=== PATIENT | female | born 1945 | race Caucasian/White ===

== ENCOUNTER 2016-11-09 14:55 | Observation (INO) ==
[2016-11-09] MEDS ORDERED: SALINE LOCK IV FLUID XX ONE (17:22)
[2016-11-09] MEDS ORDERED: LOVENOX 1 MG/KG SUBQ SCH (17:30)
[2016-11-09] MEDS: TYLENOL PO PRN ×2 (18:02→21:37)
[2016-11-09] MEDS: NITROGLYCERIN TOP SCH ×2 (18:02→18:06)
[2016-11-09] MEDS: LOVENOX SUBQ SCH (18:02)
[2016-11-09] MEDS: NORVASC PO SCH (18:02)
[2016-11-09] MEDS: COREG PO SCH (20:19)
[2016-11-09] MEDS: VASOTEC PO SCH (20:19)
[2016-11-10] MEDS: NITROGLYCERIN TOP SCH ×3 (00:18→12:05)
[2016-11-10] MEDS: ZOFRAN IV PRN ×2 (02:33→05:37)
[2016-11-10] MEDS: TYLENOL PO PRN ×3 (02:37→12:32)
[2016-11-10] MEDS ORDERED: MOTRIN PO ONE (05:03)
[2016-11-10 05:07] LABS: HEMATOCRIT 40.3 % (37.0-47.0); HEMOGLOBIN 12.8 g/dL (12.0-16.0); MCH 30.5 PG (27-31); MCHC 31.8 g/dL (33-37); MPV 13.1 FL (7.4-10.4); RBC 4.2 XMIL (4.2-5.4)
--- NOTE | 2016-11-10 05:13 | EKG Report ---
Test Performed on : 11/09/2016 5:33:15 PM Test Reason : CHEST PAIN Blood Pressure : / mmHG Vent. Rate : 052 BPM Atrial Rate : 052 BPM P-R Int : 176 ms QRS Dur : 094 ms QT Int : 464 ms P-R-T Axes : 026 013 020 degrees QTc Int : 431 ms Sinus bradycardia. Otherwise normal ECG When compared with ECG of 03-AUG-2013 14:15, No significant change was found Confirmed by Lashell CLEVELAND, Landon Munguia ([id number]) on 11/11/2016 5:37:02 PM
[2016-11-10 05:21] LABS: HDL 39 mg/dL (45-65); LDL 122 mg/dL; TRIGLYCERIDES 154 mg/dL (35-135); VLDL 31 mg/dL
[2016-11-10] MEDS: LOVENOX SUBQ SCH (05:37)
[2016-11-10] MEDS: PRILOSEC PO SCH ×2 (05:37→06:49)
[2016-11-10] MEDS: COREG PO SCH (08:08)
[2016-11-10] MEDS: NORVASC PO SCH (08:09)
[2016-11-10] MEDS: VASOTEC PO SCH (08:10)
--- NOTE | 2016-11-10 08:34 | Diag Imaging Result Document ---
PROCEDURE NAME: CHEST-2 VIEWS - 11/10/2016 CHEST X-RAY, 2 VIEWS: COMPARISON: 08/31/2012. FINDINGS: The lungs are normally expanded and clear. Heart size and mediastinal contours are normal. No pneumothorax or pleural effusion. IMPRESSION: Negative exam.
[2016-11-10] MEDS ORDERED: DEXILANT PO SCH (09:00)
[2016-11-10] MEDS ORDERED: ASPIRIN PO SCH (09:00)
[2016-11-10] MEDS ORDERED: LASIX PO SCH (09:00)
--- NOTE | 2016-11-10 10:03 | Diag Imaging Result Document ---
PROCEDURE NAME: HEAD W/O CONTRAST - 11/10/2016 CT HEAD WITHOUT CONTRAST: COMPARISON: 11/11/2010. FINDINGS: There is no discrete intracranial mass, mass effect, or intracranial hemorrhage. There is no evidence of hydrocephalus. There is no evidence of acute infarct given the limited sensitivity of CT versus MRI. There is incidental hyperostosis frontalis. Surrounding soft tissues and bony structures are grossly unremarkable, otherwise. IMPRESSION: Stable CT head with no evidence of acute pathology.
--- NOTE | 2016-11-10 11:03 | PROGRESS NOTE ---
DATE: 11/10/2016 SUBJECTIVE: Ms. Hernandez was admitted to [facility] with chest pain. Her blood pressure was quite labile in my office at 210/90. We treated her with topical nitrates and subcutaneous Lovenox. She has ruled out for myocardial ischemia by serial enzymes. She has had no further chest pain. She did have a normal cardiac catheterization in April 2016. Her blood pressure is trending down. We added amlodipine 5 mg daily. This morning, her blood pressure was 128/54. She is with complaint of a headache at the back of her head and neck. She apparently fell Wednesday and hit her head. There was no loss of consciousness. When she fell, she reported that she saw stars. She has had some nausea, but there have been no mental status changes or significant visual changes. PHYSICAL EXAMINATION: Vital signs: Temperature 97.6 degrees, pulse 59, respirations 18, blood pressure 128/54. Cardiovascular: Regular rate and rhythm. Lungs: Clear. Abdomen: Soft, nontender, with active bowel sounds. ASSESSMENT AND PLAN: 1. Chest pain. I suspect that her chest pain was due to coronary vasospasm in the face of markedly elevated blood pressure. We will continue daily aspirin and aggressive blood pressure control. I believe that the use of amlodipine will reduce the risk of coronary vasospasm and also help to control her blood pressure. 2. Hypertension. Her blood pressure looks much better. We will continue her current regimen of medications. 3. Headache. Her headache intensified last night with topical nitrates. It sounds as if she might have sustained a concussion. I am going to check a CT scan of the brain this morning. cc: Blossom Corea MD
[2016-11-10 11:12] VITALS: BP 157/53
[2016-11-10] MEDS ORDERED: MISC. PHARMACY COMMUNICATION SCH (12:45)
== END 2016-11-10 14:05 | disposition home or self-care (01) ==
LOC: DIRADM → 3S 14:55
PROVIDERS: ADMIT Internal Medicine; ATTEND Internal Medicine

== ENCOUNTER 2018-09-14 15:47 | Inpatient (IN) ==
[2018-09-14] MEDS ORDERED: DESYREL PO PRN (16:44)
[2018-09-14] MEDS ORDERED: SODIUM CHLORIDE 0.9% INJ PRN (16:44)
[2018-09-14] MEDS ORDERED: TYLENOL PO PRN (16:44)
[2018-09-14] MEDS ORDERED: PHENERGAN IV PRN (16:44)
[2018-09-14 17:53] LABS: WBC 22.39 X1000 (4.8-10.8)
[2018-09-14 17:54] LABS: BASO# 0.06 X1000 (0.0-0.2); BASO% 0.3 % (0.0-0.8); HEMATOCRIT 30.1 % (37.0-47.0); HEMOGLOBIN 9.1 g/dL (12.0-16.0); IMM GRAN# 0.29 X1000 (0.0-0.04); IMM GRAN% 1.3 % (0.0-0.5); LYMPH# 0.33 X1000 (1.2-3.4); LYMPH% 1.5 % (20.5-51.1); MCH 31.9 PG (27-31); MCHC 30.2 g/dL (33-37); MCV 105.6 FL (81-99); MONO# 0.47 X1000 (0.11-0.59); MONO% 2.1 % (1.7-9.3); MPV 12.6 FL (7.4-10.4); NEUT# 21.24 X1000 (1.4-6.5); NEUT% 94.8 % (42.2-75.2); PLT 267 X1000 (130-400); RBC 2.85 XMIL (4.2-5.4); RDW 16.1 % (11.5-14.5)
[2018-09-14] MEDS ORDERED: MORPHINE IV PRN (18:06)
[2018-09-14 18:12] LABS: AGAP 13; ALB/GLOB RATIO 1.1; ALBUMIN 2.6 g/dL (3.5-5.0); ALKALINE PHOSPHATASE 120 U/L (32-104); BUN 9 mg/dL (8-22); CHLORIDE 100 mmol/L (98-107); COSMO 281; CREATININE 1.2 mg/dL (0.5-0.9); ESTIMATED GFR 44; GLUCOSE 87 mg/dL (70-104); GOT 13 U/L (10-30); GPT < 5 U/L (10-36); POTASSIUM 2.8 mmol/L (3.5-5.1); SODIUM 142 mmol/L (136-145); TCO2 29 mmol/L (25-35); TOTAL BILIRUBIN 0.38 mg/dL (0.20-1.00)
[2018-09-14 18:13] LABS: CALCIUM 6.7 mg/dL (8.8-10.2)
[2018-09-14] MEDS ORDERED: POTASSIUM CHLORIDE 40 MEQ/SWI 40 MEQ/100 ML IVPB IV ONE (18:25)
[2018-09-14] MEDS ORDERED: CALCIUM GLUCONATE 2 GM in NS 100 ML IV ONE (18:27)
--- NOTE | 2018-09-14 18:34 | Diag Imaging Result Doc PS360 ---
EXAM: CHEST-PORTABLE - 09/14/2018 HISTORY: HTN TECHNIQUE: Portable chest Scapula are overlap. COMPARISON: 11/10/2016 FINDINGS: Heart size appears mildly enlarged. There is a small left pleural effusion. There is subsegmental atelectasis at left base. There is a possible 1.5 cm nodular density at the left upper lobe, versus artifact from scapular overlap. The remainder of the lungs appear essentially clear. There is no pneumothorax identified. There is a central venous catheter with its tip at or near the cavoatrial junction. IMPRESSION: Mild cardiomegaly. Small left pleural effusion and mild left basilar atelectasis. Possible 1.5 cm nodular density at left upper lobe. Electronically signed by Luis Varghese 09/14/2018 6:32 PM
[2018-09-14] MEDS: NS 1,000 ML IV SCH (18:42)
[2018-09-14] MEDS: LOVENOX SUBQ SCH (18:43)
[2018-09-14 18:47] LABS: BANDS 1 % (0-1); LYMPHS 2 % (21-51); MICROCYTOSIS OCCASIONAL; MONO 2 % (1-9); SEGS 95 % (42-75)
[2018-09-14] MEDS: ZOSYN 4.5 GM in NS 100 ML IV SCH (18:57)
--- NOTE | 2018-09-14 18:57 | Diag Imaging Result Doc PS360 ---
EXAM: CT ABDOMEN/PELVIS W/O CONTRAST - 09/14/2018 HISTORY: RECURRENT DIVERTICULITIS TECHNIQUE: CT abdomen/pelvis without contrast. No contrast administered per request of the referring provider. COMPARISON: 06/16/2018 FINDINGS: There are small bilateral pleural effusions with adjacent dependent atelectasis. There are no acute changes identified in the liver, spleen, adrenal glands, or pancreas. The gallbladder is distended similar to prior. There are no calcified gallstones or pericholecystic inflammation identified. There is mild left hydronephrosis. There is no discrete renal stone identified. The mild left hydronephrosis may relate There is no right hydronephrosis. There is no renal stone identified. There is mild retroperitoneal adenopathy. Evaluation of bowel is somewhat limited due to the lack of administered oral and intravenous contrast. There is colonic diverticulosis. There is a clinical history of diverticulitis with possible small perforation at an outside institution about two weeks ago. There is an unusual tubular structure at the left pelvis which along the left side of the sigmoid colon and it extends above the sigmoid colon. This is primarily of fluid density, and contains a small amount of gas. There was no loop of bowel present at this location on the prior exam. This is suspicious for an unusual tubular abscess. This measures about 10 cm in length by slightly greater than or equal to 2.5 cm in diameter. The above-mentioned left hydronephrosis may relate to some compression of the left ureter by the apparent abscess. There are ill-defined inflammatory changes of the mesentery at the pelvis and lower abdomen. There are possibly some small fluid collections within the mesentery which may represent small interloop abscesses, although these are difficult to definitively distinguish from unopacified small bowel. There is no free intraperitoneal air identified elsewhere. There is no evidence of bowel obstruction. IMPRESSION: Apparent unusual tubular abscess in left pelvis along the left side of the sigmoid colon and extending above the sigmoid. This measures approximately 10 cm in length by slightly greater than or equal to 2.5 cm in diameter. This apparently compresses left ureter, producing mild left hydronephrosis. This likely originated from sigmoid diverticulitis. Ill-defined inflammatory changes of mesentery of pelvis and lower abdomen, with possible scattered small interloop abscesses. This report was discussed with Dr. Corea on 09/14/2018 at 6:45 PM and was readback. This exam was performed using automated exposure control, adjustment of mA or kV according to patient size, and/or use of iterative reconstruction technique. Electronically signed by Luis Varghese 09/14/2018 6:54 PM
[2018-09-14] MEDS: LEVAQUIN 500 MG/D5W 500 MG/100 ML IVPB IV SCH (20:04)
[2018-09-14] MEDS: MELATONIN PO SCH (20:10)
[2018-09-14] MEDS: COREG PO SCH (20:10)
[2018-09-14] MEDS ORDERED: COREG PO SCH (21:00)
[2018-09-15] MEDS: ZOSYN 4.5 GM in NS 100 ML IV SCH ×4 (03:08→20:03)
[2018-09-15] MEDS: NS 1,000 ML IV SCH ×3 (03:10→15:23)
[2018-09-15 08:43] LABS: AGAP 5; ALBUMIN 2.2 g/dL (3.5-5.0); ALKALINE PHOSPHATASE 111 U/L (32-104); BUN 13 mg/dL (8-22); CALCIUM 7.3 mg/dL (8.8-10.2); CHLORIDE 105 mmol/L (98-107); COSMO 288; CREATININE 1.3 mg/dL (0.5-0.9); ESTIMATED GFR 40; GLUCOSE 81 mg/dL (70-104); GOT 10 U/L (10-30); GPT < 5 U/L (10-36); POTASSIUM 3.5 mmol/L (3.5-5.1); SODIUM 145 mmol/L (136-145); TCO2 35 mmol/L (25-35); TOTAL BILIRUBIN 0.36 mg/dL (0.20-1.00); TOTAL PROTEIN 4.5 g/dL (6.3-8.3)
[2018-09-15] MEDS: ZOVIRAX PO SCH (08:48)
[2018-09-15] MEDS: COREG PO SCH ×2 (08:48→20:02)
[2018-09-15] MEDS: NORVASC PO SCH (08:48)
[2018-09-15] MEDS: VITAMIN B-12 PO SCH (08:48)
[2018-09-15] MEDS: DEXILANT PO SCH (08:48)
[2018-09-15] MEDS ORDERED: DEXILANT PO SCH (09:00)
--- NOTE | 2018-09-15 09:19 | PROGRESS NOTE ---
DATE: 09/15/2018 SUBJECTIVE: Ms. Hernandez was admitted to [facility] with acute diverticulitis. A non contrast CT scan of the abdomen and pelvis demonstrated a possible diverticular abscess. She continues with persistent left lower quadrant abdominal pain and tenderness. She has had no further nausea or vomiting. She had a leukocytosis of 22,000 on admission. She has not been eating very well over the past several weeks and has had poor oral intake. She has lost approximately 13 pounds over the past month. Blood pressure remains stable; systolic blood pressures have been in the 130s whereas her diastolic blood pressures have been in the 40s and 50s. She denies any chest pain, palpitations, or anginal equivalents. OBJECTIVE: Vital Signs: T-max 101.7 degrees, temperature 98.5 degrees, pulse 71, respiratory rate 20, BP 131/46. CV: Regular rate and rhythm with a soft systolic murmur at the left sternal margin. Lungs: Clear. Abdomen: Marked left lower quadrant tenderness to deep palpation with guarding. LABS: Various laboratory studies were obtained. A CBC demonstrated white count of 22.3, hemoglobin 9.1, hematocrit 30.1 and a platelet count of 267,000. Electrolytes on admission demonstrated a sodium of 142, potassium 2.8. BUN 9, creatinine 1.2 and glucose 87. ASSESSMENT AND PLAN: 1. Acute diverticulitis with possible diverticular abscess. We will continue gentle fluid resuscitation and broad-spectrum antibiotics, including Levaquin and Zosyn pending cultures. Dr. Hill has been consulted to see her. Certainly in her overall weakened state and immunocompromised immune system, I really do not want to have to operate unless it is absolutely necessary. We will continue broad-spectrum antibiotics in the hopes that we can treat her medically. I will discuss her case with Dr. Hill this morning. 2. Severe protein calorie malnutrition. She has had poor oral intake. She has lost over 13 pounds in the past month. Her pre-albumin level was low at 6.8; her albumin level was low at 2.4. We certainly could try tube feedings via nasogastric tube or we could try total parenteral nutrition via her port. 3. Hypokalemia. She had a serum potassium of 2.8 on admission. I gave her supplemental potassium on admission. I will recheck a basic metabolic panel this morning. cc: Blossom Corea MD
--- NOTE | 2018-09-15 15:13 | CONSULTATION ---
DATE OF CONSULTATION: 09/15/2018 HISTORY OF PRESENT ILLNESS: Ms Sonia Hernandez is a 73-year-old white female patient of Dr. Ronnie Corea, who has recently been an [place] for treatment of multiple myeloma. She had induction chemotherapy with harvesting of stem cells. She has not had a stem cell transplant at this time. This hospitalization was complicated by acute diverticulitis. She was treated with antibiotics but presented on the date of admission to Dr. Ronnie Corea, who admitted her with increasing left lower abdominal pain and an elevated white blood cell count and a CT scan suggesting ongoing sigmoid diverticulitis with possible abscess. We were asked to evaluate her because of her sigmoid diverticulitis. PAST MEDICAL HISTORY: Multiple myeloma, depression, migraine headaches, recent short-term dialysis following tubular necrosis after contrast mediated x-ray, heart failure secondary to diastolic dysfunction, hypertension, osteoarthritis. MEDICATIONS: 1. Amlodipine. 2. Coreg. 3. Melittin. 4. Dexilant. 5. Dilaudid. 6. MS Contin. 7. MSIR. 8. Protonix. ALLERGIES: No known drug allergies. SOCIAL HISTORY: Her is at the bedside. She has never been a smoker. FAMILY HISTORY: Osteoarthritis, coronary artery disease, hypertension, diabetes mellitus, cancer. REVIEW OF SYSTEMS: A 14 point review of systems was performed. She has lost her hair and has become more weak. PHYSICAL EXAMINATION: General: Miss Hernandez has lost her hair. She is awake, cooperative. She is in no acute distress. She has no jaundice. HEENT: No oral lesions. Satisfactory dentition. Lymphatics: No cervical or supraclavicular lymphadenopathy. Heart: Regular rate. Lungs: Clear to auscultation and percussion bilaterally. Abdomen: Soft. It was tender in the left lower quadrant. I could palpate no mass. No costovertebral tenderness. Rectal and vaginal: Not performed. Extremities: She does have palpable femoral pulses. Mild peripheral edema. Neurologic: No focal deficits. IMAGING: CT scan suggests complicated sigmoid diverticulitis with abscess. Her white blood cell count is 22. PLAN: She is being treated with IV antibiotics per Dr. Corea. I will review the CT scans with Radiology and see if CT-guided drainage of any of this fluid seems to be reasonable. We do need to avoid IV contrast because of her recent acute renal failure. I did speak with her about surgery if we cannot get her well with antibiotics or CT-guided drainage, she understands she would probably have a colostomy. cc: MD Blossom De Leon MD
[2018-09-15] MEDS: LOVENOX SUBQ SCH (17:35)
[2018-09-15] MEDS: LEVAQUIN 500 MG/D5W 500 MG/100 ML IVPB IV SCH (19:57)
[2018-09-15] MEDS: MELATONIN PO SCH (20:02)
[2018-09-16] MEDS: ZOSYN 4.5 GM in NS 100 ML IV SCH ×4 (03:00→20:03)
[2018-09-16 07:33] LABS: CALCIUM 7.2 mg/dL (8.8-10.2); CREATININE 1.2 mg/dL (0.5-0.9); POTASSIUM 3.1 mmol/L (3.5-5.1)
[2018-09-16 07:38] LABS: BASO# 0.06 X1000 (0.0-0.2); BASO% 0.4 % (0.0-0.8); EOS# 0.01 X1000 (0.0-0.7); EOS% 0.1 % (0.0-10.0); HEMATOCRIT 24.8 % (37.0-47.0); HEMOGLOBIN 7.5 g/dL (12.0-16.0); IMM GRAN# 0.14 X1000 (0.0-0.04); IMM GRAN% 0.9 % (0.0-0.5); LYMPH# 0.22 X1000 (1.2-3.4); LYMPH% 1.4 % (20.5-51.1); MCH 32.1 PG (27-31); MCHC 30.2 g/dL (33-37); MONO# 0.68 X1000 (0.11-0.59); MONO% 4.4 % (1.7-9.3); MPV 12.3 FL (7.4-10.4); NEUT# 14.25 X1000 (1.4-6.5); NEUT% 92.8 % (42.2-75.2); PLT 258 X1000 (130-400); RBC 2.34 XMIL (4.2-5.4); RDW 16.2 % (11.5-14.5); WBC 15.36 X1000 (4.8-10.8)
[2018-09-16] MEDS: NORVASC PO SCH (09:17)
[2018-09-16] MEDS: COREG PO SCH ×2 (09:17→20:02)
[2018-09-16] MEDS: DEXILANT PO SCH (09:17)
[2018-09-16] MEDS: ZOVIRAX PO SCH (09:18)
[2018-09-16] MEDS: VITAMIN B-12 PO SCH (09:18)
[2018-09-16] MEDS: NS 1,000 ML IV SCH (12:04)
--- NOTE | 2018-09-16 12:34 | PROGRESS NOTE ---
DATE: 09/16/2018 SUBJECTIVE: Ms Hernandez was admitted to [facility] with recurrent diverticulitis, fever and chills. Her initial CT scan of the abdomen and pelvis demonstrated a tubular abscess in the left pelvis along the left side of the sigmoid colon and extending above the sigmoid. It was approximately 10 cm in length and equal to 2-1/2 cm in diameter. She also had possible scattered small interloop abscesses. She has been on IV Levaquin and Zosyn. She is having less abdominal pain. She is not had any further nausea, vomiting or diarrhea. She has been afebrile. White count has dropped from 22,000 to 15,000. OBJECTIVE: Vital signs: Temperature 98.2 degrees, pulse 69, respiration 18, BP 133/48. Cardiovascular: Regular rate and rhythm. Lungs: Clear. Abdomen: Good bowel sounds. Mild to moderate tenderness in the left lower quadrant. No rebound or guarding. ASSESSMENT AND PLAN: Acute diverticulitis with an acute diverticular abscess. She is currently undergoing chemotherapy for multiple myeloma. She recently had stem cells harvested in anticipation of a stem cell transplant. Given her overall debility, Dr. Hill and I want to try to avoid surgery if possible. She seems to be improving clinically. She is having less abdominal pain. Her white count is trending down. I am going to begin clear liquids today. We will continue broad-spectrum antibiotics including Levaquin and Zosyn and we will follow her blood counts. I will arrange for a repeat CT scan of the abdomen and pelvis without contrast on Wednesday morning. If her clinical improvement slows down or if the CT appears worse, then we may have no choice but to surgically drain the abscess. She is not felt to be at candidate for CT-guided drainage of the abscess. It is our hope that she will continue to improve with conservative measures only and will not require surgery. cc: Blossom Corea MD
[2018-09-16] MEDS: LOVENOX SUBQ SCH (17:45)
[2018-09-16] MEDS: POTASSIUM CHLORIDE 20 MEQ/SWI 20 MEQ/100 ML IVPB IV SCH ×2 (18:12→20:09)
[2018-09-16] MEDS: MELATONIN PO SCH (20:02)
[2018-09-16] MEDS: LEVAQUIN 500 MG/D5W 500 MG/100 ML IVPB IV SCH (20:20)
[2018-09-17] MEDS: ZOSYN 4.5 GM in NS 100 ML IV SCH ×4 (03:22→20:38)
[2018-09-17 07:40] LABS: BASO# 0.04 X1000 (0.0-0.2); BASO% 0.4 % (0.0-0.8); EOS# 0.02 X1000 (0.0-0.7); EOS% 0.2 % (0.0-10.0); HEMATOCRIT 24.7 % (37.0-47.0); HEMOGLOBIN 7.6 g/dL (12.0-16.0); IMM GRAN% 1.1 % (0.0-0.5); LYMPH# 0.22 X1000 (1.2-3.4); LYMPH% 2.5 % (20.5-51.1); MCH 31.9 PG (27-31); MCHC 30.8 g/dL (33-37); MCV 103.8 FL (81-99); MONO# 0.58 X1000 (0.11-0.59); MONO% 6.5 % (1.7-9.3); MPV 12.4 FL (7.4-10.4); NEUT% 89.3 % (42.2-75.2); PLT 273 X1000 (130-400); RBC 2.38 XMIL (4.2-5.4); RDW 16.2 % (11.5-14.5); WBC 8.96 X1000 (4.8-10.8)
[2018-09-17 08:05] LABS: CALCIUM 7.3 mg/dL (8.8-10.2)
[2018-09-17] MEDS: ZOVIRAX PO SCH (09:07)
[2018-09-17] MEDS: VITAMIN B-12 PO SCH (09:07)
[2018-09-17] MEDS: DEXILANT PO SCH (09:07)
[2018-09-17] MEDS: COREG PO SCH ×2 (09:07→20:39)
[2018-09-17] MEDS: NORVASC PO SCH (09:07)
[2018-09-17] MEDS ORDERED: KLOR-CON PO ONE (10:27)
--- NOTE | 2018-09-17 15:12 | GENERAL SURGERY PROGRESS NOTE ---
DATE: 09/17/2018 SUBJECTIVE: The patient is doing okay overall. She is having some mild generalized abdominal pain but not severe. No nausea or vomiting. She is tolerating liquids by mouth. She has passed some gas and had a bowel movement. OBJECTIVE: Vital signs: She is afebrile. Vital signs are stable. General: She is awake, alert, oriented x3. No acute distress. Gastrointestinal: Soft, nondistended. Generalized tenderness remains. No rebound repair or guarding. She does have a few bowel sounds. LABORATORY DATA: White blood cell count 8.9. ASSESSMENT AND PLAN: A 73-year-old female with diverticular abscess as well as immune deficiency from chemotherapy for multiple myeloma. She appears to be generally improving. I will continue the antibiotics at this time. We will advance her diet to GI soft and see how she tolerates this, and I have encouraged ambulation as tolerated. cc: MD Blossom Mcgraw MD
[2018-09-17] MEDS: LOVENOX SUBQ SCH (18:41)
[2018-09-17] MEDS: LEVAQUIN 500 MG/D5W 500 MG/100 ML IVPB IV SCH (20:38)
[2018-09-17] MEDS: MELATONIN PO SCH (20:39)
[2018-09-17] MEDS: KLOR-CON PO SCH (20:39)
[2018-09-18] MEDS: ZOSYN 4.5 GM in NS 100 ML IV SCH ×4 (03:28→23:24)
[2018-09-18 08:07] LABS: BASO# 0.04 X1000 (0.0-0.2); BASO% 0.7 % (0.0-0.8); EOS# 0.01 X1000 (0.0-0.7); EOS% 0.2 % (0.0-10.0); HEMATOCRIT 22.2 % (37.0-47.0); HEMOGLOBIN 6.8 g/dL (12.0-16.0); IMM GRAN# 0.16 X1000 (0.0-0.04); IMM GRAN% 2.6 % (0.0-0.5); LYMPH# 0.26 X1000 (1.2-3.4); LYMPH% 4.3 % (20.5-51.1); MCH 31.9 PG (27-31); MCHC 30.6 g/dL (33-37); MCV 104.2 FL (81-99); MONO# 0.63 X1000 (0.11-0.59); MONO% 10.4 % (1.7-9.3); MPV 12.4 FL (7.4-10.4); NEUT# 4.94 X1000 (1.4-6.5); NEUT% 81.8 % (42.2-75.2); PLT 289 X1000 (130-400); RBC 2.13 XMIL (4.2-5.4); RDW 15.9 % (11.5-14.5); WBC 6.04 X1000 (4.8-10.8)
[2018-09-18 08:17] LABS: AGAP 9; BUN 10 mg/dL (8-22); CHLORIDE 109 mmol/L (98-107); COSMO 291; CREATININE 0.9 mg/dL (0.5-0.9); ESTIMATED GFR > 60; GLUCOSE 94 mg/dL (70-104); POTASSIUM 3.1 mmol/L (3.5-5.1); SODIUM 147 mmol/L (136-145); TCO2 29 mmol/L (25-35)
[2018-09-18 08:33] LABS: CALCIUM 6.8 mg/dL (8.8-10.2)
--- NOTE | 2018-09-18 10:12 | GENERAL SURGERY PROGRESS NOTE ---
DATE: 09/18/2018 SUBJECTIVE: The patient overall is feeling better with decreasing pain. She denies nausea or vomiting or fever. She does report poor appetite. OBJECTIVE: Vital Signs: She is afebrile. Vital signs are stable. General: She is awake, alert, oriented x 3. No acute distress. Gastrointestinal: Soft, nondistended. Mildly tender on the left side. No rebound or guarding. ASSESSMENT AND PLAN: A 73-year-old female with left diverticular abscess. She is improving on antibiotics. There are no acute surgical plans at this time. She will advance her diet as tolerated. cc: MD Blossom Mcgraw MD
[2018-09-18] MEDS: VITAMIN B-12 PO SCH (10:30)
[2018-09-18] MEDS: ZOVIRAX PO SCH (10:30)
[2018-09-18] MEDS: KLOR-CON PO SCH ×2 (10:30→22:10)
[2018-09-18] MEDS: DEXILANT PO SCH (10:30)
[2018-09-18] MEDS: COREG PO SCH ×2 (10:30→22:10)
[2018-09-18] MEDS: NORVASC PO SCH (10:30)
[2018-09-18] MEDS ORDERED: NS 250 ML ONE (11:48)
[2018-09-18] MEDS: LOVENOX SUBQ SCH (17:49)
[2018-09-18] MEDS: MELATONIN PO SCH (22:10)
[2018-09-18] MEDS: LEVAQUIN 500 MG/D5W 500 MG/100 ML IVPB IV SCH (22:10)
[2018-09-19] MEDS: ZOSYN 4.5 GM in NS 100 ML IV SCH ×2 (05:59→11:24)
[2018-09-19] MEDS: DEXILANT PO SCH (10:04)
[2018-09-19] MEDS: ZOVIRAX PO SCH (10:04)
[2018-09-19] MEDS: VITAMIN B-12 PO SCH (10:04)
[2018-09-19] MEDS: COREG PO SCH ×2 (10:05→21:49)
[2018-09-19] MEDS: NORVASC PO SCH (10:05)
[2018-09-19] MEDS: KLOR-CON PO SCH (10:05)
--- NOTE | 2018-09-19 10:07 | Diag Imaging Result Doc PS360 ---
EXAM: CT ABD/PELVIS W/ORAL CONT ONLY INDICATION: F/U diverticular abscess TECHNIQUE: This exam was performed using automated exposure control, adjustment of mA or kV according to patient size, and/or use of iterative reconstruction technique. COMPARISON: 09/14/2018 FINDINGS: There are small bilateral pleural effusions and bibasilar atelectasis. The liver, gallbladder, spleen, and pancreas are unremarkable. There is a stable small left adrenal adenoma. There has been improvement of mildly dilated left renal collecting system. The oblong fluid collection along the left pelvic sidewall seen on the previous study that was worrisome for abscess has decreased substantially in size. It measures up to 2 cm in thickness (3 cm previously). There is no evidence of bowel obstruction. There is sigmoid colonic diverticulosis. One of these diverticula is probably the origin of the pelvic abscess. There is body wall anasarca. There is trace ascites tracking around the liver and between a few loops of bowel in the lower abdomen. There appears be mild mucosal thickening involving a few loops of bowel in the lower abdomen and pelvis suggesting possible mild enteritis. IMPRESSION: 1.Interval substantial decrease in size in the loculated fluid collection along the left pelvic sidewall that was suspicious for abscess the previous study. 2.Improvement of mild left hydronephrosis. 3.Mucosal thickening involving a few loops of small bowel low in the abdomen and pelvis suggesting possible mild enteritis. 4.Small volume ascites and body wall anasarca. Electronically signed by Manjinder High 09/19/2018 10:05 AM
[2018-09-19] MEDS ORDERED: BENADRYL PO ONE (13:35)
[2018-09-19] MEDS ORDERED: NS 500 ML ONE (15:09)
[2018-09-19] MEDS ORDERED: LOMOTIL PO PRN (17:14)
[2018-09-19] MEDS: LOVENOX SUBQ SCH (17:27)
--- NOTE | 2018-09-19 19:24 | PROGRESS NOTE ---
DATE: 09/19/2018 Ms. Sonia Hernandez is a 73-year-old white female patient of Dr. Ronnie Corea who has multiple myeloma and has undergone chemotherapy and was planning on getting a stem cell transplant, but she has developed a complicated acute sigmoid diverticulitis with an abscess along the lateral aspect of her sigmoid colon. We have treated this with IV antibiotics and she has improved clinically over the weekend and a CT scan today showed a substantial decrease in the size of the loculated fluid collection along the left pelvic sidewall and improvement of her mild left hydronephrosis. Her white blood cell count is now 6 and has decreased from 22 on admission. She is significantly anemic with hematocrit of 22%. Electrolytes are within normal limits. Her diet has been advanced and now she is on a regular diet. She is having loose stools. Her abdomen is soft and minimally tender. I spoke with Dr. Ronnie Corea. I think we may try to send her home tomorrow but she will need to be on p.o. antibiotics. I am glad to follow her up as necessary in our outpatient offices. cc: MD Blossom De Leon MD
[2018-09-19] MEDS: MELATONIN PO SCH (21:49)
[2018-09-19] MEDS: CULTURELLE FOR KIDS PO SCH (21:49)
[2018-09-20 07:48] VITALS: BP 168/63
[2018-09-20 08:03] LABS: HEMATOCRIT 34.8 % (37.0-47.0); HEMOGLOBIN 11.2 g/dL (12.0-16.0)
[2018-09-20] MEDS: DEXILANT PO SCH (08:50)
[2018-09-20] MEDS: CULTURELLE FOR KIDS PO SCH (08:50)
[2018-09-20] MEDS: NORVASC PO SCH (08:50)
[2018-09-20] MEDS: COREG PO SCH (08:50)
[2018-09-20] MEDS: ZOVIRAX PO SCH (08:50)
[2018-09-20] MEDS: VITAMIN B-12 PO SCH (08:50)
[2018-09-20] MEDS ORDERED: LEVAQUIN PO SCH (09:00)
--- NOTE | 2018-09-20 22:10 | DISCHARGE SUMMARY ---
ADMISSION DATE: 09/14/2018 DISCHARGE DATE: 09/20/2018 DISCHARGE DIAGNOSES: 1. Acute diverticulitis with large abscesses and scattered microabscesses without hemorrhage. 2. Migraine headaches. 3. Depression. 4. Lambda light chain multiple myeloma with multiple bony metastases. 5. Chronic congestive heart failure secondary to diastolic dysfunction. 6. Iron-deficiency anemia secondary to bone marrow suppression. DISCHARGE INSTRUCTIONS: 1. Return to clinic in 1 week to see me, Dr. Ronnie Corea, in anticipation of a transition of care visit. 2. Activity as tolerated. 3. [place] [facility] diet. MEDICATIONS: Lactobacillus b.i.d., levofloxacin 250 mg daily for 7 days, acyclovir 400 mg daily, amlodipine 5 mg daily, melatonin 3 mg at bedtime, Coreg 25 mg b.i.d., Dexilant 60 mg daily, morphine ER MS Contin 15 mg b.i.d., MSIR 15 mg q.6 hours p.r.n. pain. This is a well-developed, well-nourished 73-year-old lady in no apparent distress. She is afebrile. Vital signs are stable. CV: Regular rate and rhythm. Lungs: Clear. Abdomen: Soft, nontender with active bowel sounds. Ms. Sonia Hernandez has a new onset of lambda chain multiple myeloma with multiple bony metastases. She had been at the [facility] for several weeks and during her hospitalization they harvested stem cells in anticipation of doing a bone marrow transplant. Her hospitalization was complicated by diverticulitis. It does not sound as if she ever fully recovered from the acute diverticulitis, there was some question according to the family that she might have a small abscess. She presented to my office complaining of fever of 101 degrees, hard shaking rigors, nausea, vomiting and significant left lower quadrant abdominal pain. A CT scan of the abdomen and pelvis demonstrated a large diverticular abscess, scattered micro abscesses and acute diverticulitis. Given her overall frail health and poor functional capacity we did not want to operate unless it was absolutely necessary. We initially held her n.p.o. and begin broad-spectrum antibiotics including Levaquin and Zosyn. Over the course of the next several days her leukocytosis normalized, the abdominal pain resolved, the nausea and vomiting resolved, she was tolerating clear liquids. A follow up CT scan of the abdomen and pelvis on 09/19/2018 demonstrated substantial decrease in the size of the fluid collection in the left pelvis. The patient was transitioned to oral medications and was advanced to a GI soft diet. We did not feel that given her clinical improvement and CT findings that surgery was indicated. She was tolerating a bland diet without any nausea, vomiting or abdominal pain. She will complete a 7 day course of Levaquin 250 mg daily. She has a history of chronic iron deficiency anemia. I suspect she has some degree of bone marrow suppression. Her hemoglobin and hematocrit were 9.1 and 30.1 on admission. Her blood counts dropped to 6.8 and 22.2. I gave her 2 units of packed red blood cells. Her hemoglobin, hematocrit were 11.2 and 34.8 on discharge. Having reached maximum hospital benefit, the patient was discharged in stable condition. cc: Blossom Corea MD
== END 2018-09-20 09:18 | disposition home or self-care (01) | DRG 392 ==
LOC: DIRADM 15:47 → 3N 16:35
PROVIDERS: ADMIT Internal Medicine; ATTEND Internal Medicine
CPT/HCPCS: 36430; 71010; 71045; 74176; 80048; 80053; 83605; 84134; 85014; 85018; 85025; 86850; 86900; 86901; 86920; 87040; 87324; 87328; 87329; 87449; A9270; J0610; J1650; J1956; J2543; J3480; J7030; J7040; J7050; P9016

== ENCOUNTER 2019-04-28 10:40 | Inpatient (IN) ==
[2019-04-28] MEDS ORDERED: TYLENOL PO PRN ×2 (12:02→13:15)
[2019-04-28] MEDS ORDERED: DESYREL PO PRN (12:02)
[2019-04-28] MEDS ORDERED: NS 1,000 ML IV SCH (12:02)
[2019-04-28] MEDS ORDERED: SODIUM CHLORIDE 0.9% INJ PRN (12:02)
[2019-04-28] MEDS: PHENERGAN IV PRN (12:33)
--- NOTE | 2019-04-28 14:38 | Diag Imaging Result Doc PS360 ---
EXAM: CT ABD/PELVIS W/ORAL CONT ONLY - 04/28/2019 HISTORY: PERSISTENT DIARRHEA RECURRENT DIVERTICULITIS TECHNIQUE: CT abdomen/pelvis with oral contrast only. No intravenous contrast administered per request of the referring provider. COMPARISON: 09/29/2018 FINDINGS: The visualized lung bases are clear. There are no acute abnormalities of the liver, spleen, adrenal glands, or pancreas identified. The gallbladder is mildly distended. There are no calcified gallstones or pericholecystic inflammation identified. There is no renal stone or hydronephrosis identified. There are small to borderline retroperitoneal lymph nodes similar to prior. 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 There is no evidence of bowel obstruction. There is colonic diverticulosis which is most extensive at the sigmoid. There is an apparent chronic fistulous tract which extends from the distal most sigmoid colon or rectosigmoid junction to the left adnexal region. There is soft tissue thickening at the left adnexal region which measures approximately 3 cm, similar to prior. There is gas in the fistulous tract. There is no discrete associated fluid collection identified. There are mild inflammatory changes versus scarring along the superior aspect of the mid and distal sigmoid. There is no free discretely identified. IMPRESSION: Colonic diverticulosis which is most extensive along the sigmoid. Apparent chronic fistulous tract which extends from the distal most sigmoid or rectosigmoid junction to the left adnexal region, similar to prior. This contains gas but does not appear to contain substantial fluid. There are mild inflammatory changes versus scarring along the superior margin of the mid and distal sigmoid. Mildly distended gallbladder. No calcified gallstones. No pericholecystic inflammation. This exam was performed using automated exposure control, adjustment of mA or kV according to patient size, and/or use of iterative reconstruction technique. Electronically signed by Luis Varghese 04/28/2019 2:36 PM
--- NOTE | 2019-04-28 16:50 | HISTORY AND PHYSICAL ---
Mrs. Sonia Hernandez is a 74-year-old lady with a history of chronic congestive heart failure secondary to diastolic dysfunction, essential hypertension, migraine headaches, depression, recurrent DVT and lambda light chain multiple myeloma with distant metastasis to the anterior acetabulum, left ischial tuberosity and superior pubic ramus. She has been currently taking oral Revlimid as well as intravenous chemo. They held the Revlimid the past week because her platelet counts were low. She presents to clinic complaining of crampy abdominal pain in association with nausea, dry heaves and explosive diarrhea. She has had 8 to 10 explosive watery stools on a daily basis. Her appetite is diminished. She denies any fever or chills. A CT scan of the abdomen and pelvis was consistent with colonic diverticulosis in the sigmoid colon with a chronic fistulous tract which extends from the distal most sigmoid to the left adnexal region. It is suggestive of a mild abscess. PAST MEDICAL HISTORY: As above. PAST SURGICAL HISTORY: Septoplasty. ALLERGIES: Flagyl. FAMILY HISTORY: Father had osteoarthritis. Mother had coronary artery disease status post ID and hypertension. Her sister had diabetes. MEDICATIONS: Calcium carbonate 1260 mg daily, Coreg 12.5 mg b.i.d., Dexilant 160 mg daily, ferrous sulfate 325 mg daily, Neurontin 600 mg b.i.d., Xarelto 20 mg daily. SOCIAL HISTORY: She denies the use of tobacco, alcohol, or illicit drugs. She is and lives with her spouse. REVIEW OF SYSTEMS: General: She denies any recent weight gain or weight loss. HEENT: She wears glasses. CV: No chest pain, palpitations, or anginal equivalents. Pulmonary: No shortness of breath, PND, orthopnea. GI: No reflux, dysphagia, melena, hematochezia, change in bowel habits or rectal bleeding. Endocrine: No polyuria, no polydipsia. No cold or heat intolerance. Skin: No easy bruisability . : No leakage of urine with coughing or laughing. Neuro: No migraines or seizures. This is a chronically ill-appearing 74-year-old lady in no apparent distress. Temperature 99.6, BP 110/60, pulse 84, respiratory rate 16, height 5 feet 3 inches tall, weight 134 pounds HEENT: Fundi with arteriolar wall thickening. Pupils equal, round, reactive to light. Extraocular eye movements intact. TMs without bulla. Neck: Supple. No masses, JVD or bruits. CV: Regular rate and rhythm. Lungs: Clear. Abdomen: Bowel sounds diffusely tender but with marked tenderness in the left lower quadrant. There is some guarding. No rebound. Extremities: Without edema. Breasts, EMERGENCY PHYSICIAN, rectal: Deferred. Neuro: Nonfocal. ASSESSMENT AND PLAN: 1. Diverticular abscess. We will cautiously rehydrated her with normal saline in the face of congestive heart failure. I will begin broad-spectrum antibiotics including Zosyn 3.375 g IV q.6 hours. I will check blood cultures x2. We will advance her diet as tolerated. 2. Chronic deep vein thrombosis. Given her underlying myeloma she will require lifelong anticoagulation. We will continue Xarelto 20 mg daily. 3. Hypertension, blood pressure stable. We will continue her current regimen of medications. Given her comorbid conditions and clinical presentation, I believe that admission to the hospital is both reasonable and necessary. I anticipate that the patient will be in the hospital for at least 2 midnights and I will therefore place her in inpatient status. We will continue Xarelto as needed for DVT prophylaxis. cc: MD MARGARET Calzada
[2019-04-28] MEDS: NS 1,000 ML IV SCH (17:24)
[2019-04-28] MEDS: ZOSYN 3.375 GM in NS 50 ML IV SCH ×2 (17:24→21:39)
[2019-04-29] MEDS: NS 1,000 ML IV SCH ×2 (00:15→13:48)
[2019-04-29] MEDS: ZOSYN 3.375 GM in NS 50 ML IV SCH ×4 (03:58→20:14)
--- NOTE | 2019-04-29 10:14 | PROGRESS NOTE ---
DATE: 04/29/2019 SUBJECTIVE: Mrs. Sonia Hernandez was admitted to [facility] with left lower crampy abdominal pain and explosive watery diarrhea. She had been having 8 to 10 loose stools per day. Initial CT scan of the abdomen and pelvis demonstrated extensive diverticulosis and what appeared to be a small diverticular abscess which was smaller as compared to previous scans. We cautiously rehydrated her in the setting of congestive heart failure. She has not had any diarrhea since 2 o'clock this morning. She still has some nausea but no vomiting. Stools for C difficile toxin and antigen were negative. OBJECTIVE: Vital signs: Temperature 98 degrees, pulse 58, respirations 16, blood pressure 160/54. Cardiovascular: Regular rate and rhythm. Lungs: Clear. ABDOMEN: Mild left lower quadrant tenderness to deep palpation. No rebound or guarding. ASSESSMENT AND PLAN: Small diverticular abscess. We will continue IV Zosyn. As she has had no diarrhea since 2 o'clock this morning, we will go ahead and advance her diet. I will begin a GI soft diet. If she can tolerated a GI soft diet without further nausea, vomiting, or diarrhea, we will attempt to transition her to a more prolonged course of oral antibiotics. Given the small abscess and her immunocompromise state with multiple myeloma undergoing therapy and chemotherapy, I believe that an additional day of IV antibiotics is warranted. cc: Blossom Corea MD
[2019-04-29] MEDS: PHENERGAN IV PRN (13:48)
[2019-04-29] MEDS: ZOFRAN IV PRN ×2 (16:23→20:12)
[2019-04-29] MEDS: COREG PO SCH (20:14)
[2019-04-30] MEDS: ZOSYN 3.375 GM in NS 50 ML IV SCH ×3 (03:16→08:40)
[2019-04-30] MEDS: COREG PO SCH (08:40)
[2019-04-30] MEDS: ZOFRAN IV PRN (10:12)
[2019-04-30] MEDS ORDERED: ZOFRAN PO PRN (11:05)
[2019-04-30] MEDS: NS 1,000 ML IV SCH ×2 (11:17→13:08)
[2019-04-30 11:53] VITALS: BP 173/55
--- NOTE | 2019-04-30 13:50 | DISCHARGE SUMMARY ---
ADMISSION DATE: 04/28/2019 DISCHARGE DATE: 04/30/2019 HOSPITAL COURSE: Ms. Hernandez is a patient of Dr. Ronnie Corea. Presented on 04/28/2019 with a history of chronic congestive heart failure secondary to diastolic dysfunction, essential hypertension, migraine headaches, depression, recurrent DVT. She has a lambda light chain multiple, myeloma with distant metastasis to the anterior acetabulum, left ischial tuberosity, and superior pubic ramus. She has been currently taking Revlimid as well as intravenous chemotherapy. Held Revlimid the past week because the platelet counts were low. Presented to the clinic with Dr. Corea. Crampy abdominal pain associated with nausea, dry heaves, explosive diarrhea. She had 8 to 10 explosive watery stools on a daily basis. Appetite was diminished. CT scan of the abdomen and pelvis was consistent with chronic diverticulosis in the sigmoid colon with chronic fistula track which extends from the distal-most sigmoid to the left adnexal region. It is suggestive of mild abscess so she was admitted and put on some antibiotics, Zosyn 3.375 g IV q.6 hours. They checked stools and blood cultures. Checked stools for C. difficile. She had no diarrhea after about 2 o'clock the following morning. She was started on a soft diet, which she tolerated well and felt much better, and felt she could go home given the small abscess in her immunocompromised state with multiple myeloma, light chain, undergoing therapy and chemotherapy. She got an additional day of IV antibiotics but felt much better and wanted to go home so we will discharge her home on her previous medications. She is on Coreg 12.5 mg q.12 hours and we will give her Levaquin 500 mg p.o. daily for another 7 days. She is on trazodone 50 mg p.o. at bedtime p.r.n. She will take her calcium carbonate 1260 mg daily and she is on Dexilant 60 mg a day, ferrous sulfate 325 mg a day, Neurontin 600 mg b.i.d., lenalidomide 10 mg daily, and Xarelto 20 mg a day. Follow up with Dr. Corea in a week. cc: MD Blossom Pond MD
== END 2019-04-30 14:03 | disposition home or self-care (01) | DRG 392 ==
LOC: DIRADM → OBSVTOIN 10:40 → 3N 11:32
PROVIDERS: ADMIT Internal Medicine; ATTEND Internal Medicine